=== PATIENT | male | born 1965 | race African-American/Black ===

== ENCOUNTER 2022-07-22 09:11 | Outpatient (CLI) | payer BC | END 2022-07-22 09:12 | disposition home or self-care (01) | LOC: SCSMRI 09:11 | PROVIDERS: ATTEND Orthopaedic Surgery | DX: S46.011A Strain of muscle(s) and tendon(s) of the rotator cuff of right shoulder, initial encounter (principal); S46.811A Strain of other muscles, fascia and tendons at shoulder and upper arm level, right arm, initial encounter; S43.431A Superior glenoid labrum lesion of right shoulder, initial encounter; M19.011 Primary osteoarthritis, right shoulder ==